=== PATIENT | male | born 1990 | race Caucasian/White ===

== ENCOUNTER 2019-09-24 10:58 | Emergency (ER) | payer OTHER ==
[~2019-09-24] VITALS: Ht 188 cm; Wt 77.1 kg
[~2019-09-24 10:58] MED LIST: HYDACE5 PO
== END 2019-09-24 11:55 | disposition home or self-care (01) ==
LOC: ER 10:58
DX: S51.812A Laceration without foreign body of left forearm, initial encounter (principal); F17.200 Nicotine dependence, unspecified, uncomplicated; Z88.8 Allergy status to other drugs, medicaments and biological substances; W27.8XXA Contact with other nonpowered hand tool, initial encounter; Y99.0 Civilian activity done for income or pay
CPT/HCPCS: 12034; 90471; 90714; 99282-25